=== PATIENT | female | born 1975 | race Caucasian/White ===

== ENCOUNTER 2016-06-15 22:52 | Emergency (ER) | payer OTHER ==
[2016-06-16 00:27] LABS: HCG,QUALITATIVE URINE NEGATIVE
[2016-06-16] MEDS ORDERED: ASPIRIN CHEWTAB 81 MG TABLET ONE (01:40)
[2016-06-16] MEDS ORDERED: LACTATED RINGERS 1,000 ML ONE (01:40)
[2016-06-16 02:04] LABS: ABSOLUTE NEUTROPHIL COUNT 5.6 K/mm3 (1.8-7.7); BASO # 0.1 K/mm3 (0.0-0.2); BASO % 0.5 % (0.2-1.0); EOS # 0.2 (0.0-0.5); EOS % 2.3 % (0.9-2.9); HEMATOCRIT 45.3 % (37.0-47.0); HEMOGLOBIN 15.2 gm/l (12.0-16.0); IMM NEUT% 0.3 % (0-1); LYMPH # 3.1 (1.0-4.8); LYMPH % 30.4 % (15-45); MEAN CELL VOLUME 91.3 fl (81.0-99.0); MEAN CORPUSCULAR HEMOGLOBIN 30.6 pg (27.0-31.0); MEAN CORPUSCULAR HGB CONC 33.6 g/dl (33.0-37.0); MEAN PLATELET VOLUME 10.4 fl (7.4-10.4); MONO # 1.1 (0.0-0.8); MONO % 11.1 % (4-12); NEUT % 55.4 % (43-75); PLATELET COUNT 249 K/mm3 (130-400); RED CELL DISTRIBUTION WIDTH 13.8 % (11.5-14.5)
[2016-06-16 02:14] LABS: CALCIUM 8.7 mg/dL (8.6-10.3)
[2016-06-16 02:18] LABS: TROPONIN I < 0.01 ng/ml (0.0-0.06)
[2016-06-16 02:21] LABS: CKMB ISOENZYME 1.4 ng/ml (0.6-6.3)
--- NOTE | 2016-06-16 07:12 | RAD ---
History: Foreign-body sensation in the throat with pain. Questionable medication reaction. Comparison: None. Technique: 2 views Findings: The soft tissue and bony structures are unremarkable. The heart size is appropriate. No infiltrate, effusion or pneumothorax is observed. The hilar and mediastinal structures are normal. Impression: 1. A negative 2 view chest
== END 2016-06-16 04:07 | disposition home or self-care (01) ==
LOC: ED 22:52
DX: R07.9 Chest pain, unspecified (principal); J45.909 Unspecified asthma, uncomplicated; I10 Essential (primary) hypertension; E66.9 Obesity, unspecified; F17.210 Nicotine dependence, cigarettes, uncomplicated; Z79.899 Other long term (current) drug therapy; Z88.1 Allergy status to other antibiotic agents
CPT/HCPCS: 81025; 85025; 82553; 80048; 84484 ×2; 71020; 99284 ×2; 93005; A9270; J7120